=== PATIENT | male | born 1985 | race Hispanic/Latino ===

== ENCOUNTER 2016-10-17 20:05 | Emergency (ER) | payer OTHER ==
[~2016-10-17] VITALS: Ht 180.3 cm; Wt 86.8 kg
[2016-10-17] MEDS ORDERED: NORCO, ANEXSIA 5/325MG TABLET (HYDROcodone/ACETAMINOPHEN) PO ONE (21:00)
[2016-10-17] MEDS ORDERED: CITR1SOL PO (21:40)
[2016-10-17 21:48] VITALS: BP 143/76
--- NOTE | 2016-10-18 07:50 | REP ---
Supine abdomen single AP view: There are no comparisons. There is focal mild small bowel distension left upper quadrant, post possibly focal ileus. The remainder of the bowel is not distended. Fecal residue is noted in the ascending colon. There are no calcifications. Skeletal structures and soft tissues otherwise are unremarkable. Impression: Focal dilated loops in the left upper quadrant, nonspecific, possibly focal ileus. Signed by Adi Akbar MD 10/18/2016 07:42 A
--- NOTE | 2016-10-18 07:51 | REP ---
PA and lateral chest: The lung cortes are clear. The cardiac size is normal The jon, mediastinum, and bony thorax are unremarkable. Impression: Negative PA and lateral chest. Signed by Adi Akbar MD 10/18/2016 07:42 A
--- NOTE | 2016-10-18 20:19 | ECGEPIP ---
Stationary ECG Study [facility] - ED Test Date: 2016-10-17 Pat Name: MARCOS VILLALOBOS Department: Room: - Gender: M Final Inspector Balance Wheel: jean : 1985 Requested By: Jordan Leon Order Number: [id number] Reading MD: Nando Cabrera Measurements Intervals [place] Rate: 60 P: 17 UT: 196 QRS: 19 QRSD: 114 T: 16 QT: 415 QTc: 418 Interpretive Statements SINUS RHYTHM WITH SINUS ARRHYTHMIA MODERATE INTRAVENTRICULAR CONDUCTION DELAY NO OLD ECG FOR COMPARISON Electronically Signed On 10-18-2016 20:19:31 EDT by Nando Cabrera
== END 2016-10-17 21:59 | disposition home or self-care (01) ==
LOC: M ED 20:05
DX: K59.00 Constipation, unspecified (principal); R10.812 Left upper quadrant abdominal tenderness; Z86.19 Personal history of other infectious and parasitic diseases; F17.200 Nicotine dependence, unspecified, uncomplicated